=== PATIENT | male | born 1965 | race Caucasian/White ===

== ENCOUNTER 2024-06-16 00:28 | Emergency (ER) | payer MEDICAID ==
[2024-06-16] MEDS: BACITRACIN 0.9 GM PACKET OINTMENT TP ONE (02:23)
[2024-06-16] MEDS: PERTUSS(ACELL),DIPH,TET/PF 0.5 ML SYRINGE [ADULT] IM. ONE (02:24)
== END 2024-06-16 02:32 | disposition home or self-care (01) ==
LOC: EMS 00:33
DX: S61.412A Laceration without foreign body of left hand, initial encounter (principal); Z23 Encounter for immunization; W25.XXXA Contact with sharp glass, initial encounter; Y93.89 Activity, other specified; Y92.89 Other specified places as the place of occurrence of the external cause; Y99.8 Other external cause status
CPT/HCPCS: 90471; 90715; 99283